=== PATIENT | female | born 2000 | race Hispanic/Latino ===

== ENCOUNTER 2018-11-04 20:54 | Emergency (ER) | payer OTHER ==
[2018-11-04] MEDS ORDERED: IBUPROFEN 600 MG TABLET ONE (21:13)
== END 2018-11-04 22:10 | disposition home or self-care (01) ==
LOC: EDH 20:54
DX: J10.1 Influenza due to other identified influenza virus with other respiratory manifestations (principal); Z88.6 Allergy status to analgesic agent; Z88.8 Allergy status to other drugs, medicaments and biological substances
CPT/HCPCS: 87804